=== PATIENT | female | born 1970 | race Caucasian/White ===

== ENCOUNTER 2016-12-29 10:26 | Day surgery (SDC) | payer OTHER ==
[2016-12-29] MEDS ORDERED: LIDOCAINE 1% 2 ML INJ ONE (10:36)
[2016-12-29] MEDS ORDERED: LR 1,000 ML IV ONE (11:16)
[2016-12-29] MEDS ORDERED: LIDOCAINE 1% 2 ML INJ ID PRN (11:16)
--- NOTE | 2016-12-29 12:17 | PDGENHP ---
History & Physical Chief Complaint: Heartburn, follow up of GE junction biopsy showing papilloma Relevant Physical Exam: GEN: NAD. Cardiac: RRR. Lungs: CTA B. Abd: Soft, nt, nd
[2016-12-29] MEDS ORDERED: PROPOFOL/EMULSION 500 MG/50 ML BOTTLE IV ONE (12:23)
[2016-12-29] MEDS ORDERED: LIDOCAINE 2% 5 ML SDV ONE (12:25)
[2016-12-29] MEDS ORDERED: NALOXONE HCL 0.4 MG/ML INJ IVP PRN (12:34)
[2016-12-29] MEDS ORDERED: fentaNYL 100 MCG/2 ML INJ IVP PRN (12:34)
[2016-12-29] MEDS ORDERED: ONDANSETRON 4 MG/2 ML VIAL IVP PRN (12:34)
[2016-12-29] MEDS ORDERED: ACETAMINOPHEN 500 MG TAB PO PRN (12:34)
--- NOTE | 2016-12-29 12:36 | PDANEPAE ---
ANE History of Present Illness EGD ANE Past Medical History - Cardiovascular History Hx Hypertension: No Hx Arrhythmias: No Hx Chest Pain: No Hx Coronary Artery / Peripheral Vascular Disease: No Hx CHF / Valvular Disease: No Hx Palpitations: No - Pulmonary History Hx COPD: No Hx Asthma/Reactive Airway Disease: No Hx Recent Upper Respiratory Infection: No Hx Oxygen in Use at Home: No Hx Sleep Apnea: No Sleep Apnea Screening Result - Last Documented: Negative - Neurologic History Hx Cerebrovascular Accident: No Hx Seizures: No Hx Dementia: No - Endocrine History Hx Diabetes: No Endocrine History Comment: THYROID NODULE CURRENTLY- WILL BE GETTING US SOON - Renal History Hx Renal Disorders: No - Liver History Hx Hepatic Disorders: No - Neurological & Psychiatric Hx Hx Neurological and Psychiatric Disorders: No - Cancer History Hx Cancer: No - Congenital Disorder History Hx Congenital Disorders: No - GI History Hx Gastrointestinal Disorders: Yes Gastrointestinal History Comment: HX OF EGD. GERD - Other Health History Other Health History: NONE - Chronic Pain History Chronic Pain: No - Surgical History Prior Surgeries: SINUS SURGERY. EGD ANE Review of Systems Review of systems is: negative - Exercise capacity METS (RN): 4 METS ANE Patient History - Allergies Allergies/Adverse Reactions: No Known Allergies Allergy (Verified 12/11/16 15:51) - Home Medications Home Medications: Wellbutrin Xl 12/11/16 [Last Taken 12/28/16 09:00] - NPO status NPO Since - Liquids (Date): 12/29/16 NPO Since - Liquids (Time): 08:00 NPO Since - Solids (Date): 12/28/16 NPO Since - Solids (Time): 20:00 - Smoking Hx Smoking Status: Former smoker - Family Anes Hx Family Hx Anesthesia Complications: NONE ANE Labs/Vital Signs - Vital Signs Blood Pressure: 112/68 Heart Rate: 81 Respiratory Rate: 16 O2 Sat (%): 98 Height: 165.1 cm Weight: 56.699 kg ANE Physical Exam - Airway Neck exam: FROM Mallampati Score: Class 2 Mouth exam: normal dental/mouth exam - Pulmonary Pulmonary: clear to auscultation - Cardiovascular Cardiovascular: regular rate and rhythym - ASA Status ASA Status: I ANE Anesthesia Plan Anesthesia Plan: GA with mask
--- NOTE | 2016-12-29 12:39 | POSTOPPROG ---
Post Op Note Date of Operation: 12/29/16 Surgeon: Cy Flores Pre-op Diagnosis: heartburn Post-op Diagnosis: same Indication: heartburn Procedure: EGD w/ bx Findings: Minimal gastritis s/p bx Inf/Abcess present in the surg proc area at time of surgery?: No
--- NOTE | 2016-12-29 12:45 | POSTANESTH ---
Post Anesthetic Evaluation Cardiovascular Status: Normal, Stable Respiratory Status: Normal, Stable Level of Consciousness/Mental Status: Can Participate in Eval, Alert and Oriented Pain Control: Adequate, Prn Tx Ordered Nausea/Vomiting Control: Adequate, Prn Tx Ordered
[2016-12-29 13:09] VITALS: PULSE 72; RESP 10
[2016-12-29 13:22] VITALS: TEMP 97.5; O2SAT 99
[2016-12-29 14:00] VITALS: BP 113/78
--- NOTE | 2016-12-29 15:02 | GPN ---
[f rep st] PROCEDURE NOTE DATE OF PROCEDURE: 12/29/2016 PREPROCEDURE DIAGNOSIS: Heartburn. History of squamous papilloma of the GE junction. POSTPROCEDURE DIAGNOSIS: Minimal gastritis. PROCEDURE: Esophagogastroduodenoscopy with biopsies. MEDICATIONS: Monitored anesthesia care. 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 She is here today for upper endoscopy. Risks and benefits of the procedu re were discussed with the patient and consent obtained. Risks include, but not limited to, bleedin g, perforation, and sedation. The patient is ASA Class 1. DESCRIPTION OF PROCEDURE: The end-viewing endoscope was inserted into the esophagus, into stomach a nd second portion of the duodenum. The esophagus appears normal. The Z-line is located at 35 cm fr om the incisors. There was no evidence of nodularity of the GE junction. Random biopsies were take n on the gastric side of the GE junction using cold biopsy forceps. The stomach shows minimal antra l gastritis. Biopsies were taken using cold biopsy forceps to evaluate for Helicobacter pylori. Th e duodenum and second portion were normal. Retroflexed views in the stomach showed a small hiatal h ernia. IMPRESSION: 1. Normal Z-line, status post biopsies. 2. Minimal antral gastritis, status post biopsies. 3. Small hiatal hernia. RECOMMENDATIONS: 1. Discharge home with escort. 2. Advance diet as tolerated. 3. Follow up final pathology results. Results available within 10 days. 4. Follow up in GI clinic as previously scheduled. Thank you for allowing me to participate in care of this patient. Please do not hesitate to call [facility] questions. /[id number]/MODL
== END 2016-12-29 13:45 | disposition home or self-care (01) ==
LOC: FSGY 10:26
PROVIDERS: ATTEND Internal Medicine Gastroenterology
PROC: 0DB68ZX Excision of Stomach, Via Natural or Artificial Opening Endoscopic, Diagnostic (ICD-10-PCS; principal; 2016-12-29 11:30)
PROC: 0DB48ZX Excision of Esophagogastric Junction, Via Natural or Artificial Opening Endoscopic, Diagnostic (ICD-10-PCS; principal; 2016-12-29 11:30)
DX: K29.70 Gastritis, unspecified, without bleeding (principal); R12 Heartburn; K44.9 Diaphragmatic hernia without obstruction or gangrene
CPT/HCPCS: J2704